=== PATIENT | female | born 1945 | race Caucasian/White ===

== ENCOUNTER → 2021-08-09 10:35 | Outpatient (CLI) | payer MEDICARE, SELFPAY ==
[2021-08-09 13:12] LABS: Alanine Aminotransferase 52 IU/L (<35); Albumin 4.4 g/dL (3.5-5.0); Albumin Globulin Ratio 1.6 (1.0-2.8); Alkaline Phosphatase 63 U/L (38-126); Aspartate Aminotransferase 57 IU/L (14-36); Bilirubin Total 0.7 mg/dL (0.2-1.3); Blood Urea Nitrogen 18 mg/dL (7-17); Calcium 9.9 mg/dL (8.4-10.2); Carbon Dioxide 31 mmol/L (22-32); Chloride 102 mmol/L (98-107); Cholesterol 177 mg/dL (140-199); Estimated Glomerular Filt Rate > 60.0 mL/min (>60); Globulin 2.7 g/dL (1.7-4.1); Glucose 94 mg/dL (80-110); HDL Cholesterol 74 mg/dL (40-60); HEMOLYSIS < 15 (0-50); LDL Cholesterol Calculated 88 mg/dL (<100); Potassium 4.5 mmol/L (3.4-5.1); Sodium 138 mmol/L (137-145); Total Protein 7.1 g/dL (6.3-8.2); Triglycerides 76 mg/dL (35-150)
== END ==
PROVIDERS: PCP Internal Medicine; Referring Provider Internal Medicine; Visit Provider Internal Medicine
DX: Z13.220 Encounter for screening for lipoid disorders (principal); Z13.1 Encounter for screening for diabetes mellitus
CPT/HCPCS: 36415; 80053; 80061

== ENCOUNTER → 2021-08-22 10:09 | Outpatient (CLI) | payer MEDICARE, SELFPAY ==
[2021-08-22 12:35] LABS: INR 1.1 (0.9-1.3); Prothrombin Time 11.9 SECONDS (10.1-12.7)
[2021-08-22 13:07] LABS: HEMOLYSIS < 15 (0-50); Iron 99 ug/dL (37-170)
[2021-08-22 13:20] LABS: Percent Iron Saturation 46 % (15-50); Total Iron Binding Capacity 214 ug/dL (265-497); Transferrin 205 mg/dL (206-381)
[2021-08-22 13:29] LABS: Alanine Aminotransferase 19 IU/L (<35); Albumin 4.5 g/dL (3.5-5.0); Albumin Globulin Ratio 1.8 (1.0-2.8); Alkaline Phosphatase 60 U/L (38-126); Aspartate Aminotransferase 27 IU/L (14-36); Bilirubin Total 0.5 mg/dL (0.2-1.3); Bilirubin Unconjugated 0.6 mg/dL (0.0-1.1); Creatine Kinase 41 U/L (30-135); Globulin 2.5 g/dL (1.7-4.1); HEMOLYSIS < 15 (0-50)
[2021-08-22 13:39] LABS: TSH w/ Reflex to FT4 3.13 uIU/mL (0.47-4.68)
[2021-08-22 14:03] LABS: Hepatitis B Surface Antigen NEGATIVE s/c (NEGATIVE)
[2021-08-22 14:29] LABS: Hep C Virus Ab w/Reflex Quant NEGATIVE s/c (NEGATIVE)
[2021-08-23 08:02] LABS: Ceruloplasmin 23.8 mg/dL (19.0-39.0)
[2021-08-23 17:08] LABS: Deamidated Gliadin IgA 4 units (0-19); Deamidated Gliadin IgG <1 units (0-19); IGA 248 mg/dL (64-422); t-Transglutaminase IgA <2 U/mL (0-3)
[2021-08-24 01:07] LABS: Hepatitis B Surf Ab Qualitativ Non Reactive (.)
[2021-08-24 14:59] LABS: Smooth Muscle Antibody 4 Units (0-19)
[2021-08-25 14:58] LABS: ANA Screen, IFA Negative (.)
== END ==
PROVIDERS: PCP Internal Medicine; Referring Provider Internal Medicine; Visit Provider Internal Medicine
DX: R74.01 Elevation of levels of liver transaminase levels (principal)
CPT/HCPCS: 36415; 80076; 82390; 82550; 82784; 83516; 83540; 83550; 84443; 85610; 86038; 86255; 86706; 86803; 87340